=== PATIENT | male | born 1985 | race Caucasian/White ===

== ENCOUNTER 2020-05-04 13:41 | Emergency (ER) | payer OTHER ==
--- NOTE | 2020-05-04 15:21 | ULT ---
VENOUS DOPPLER ULTRASOUND OF THE LEFT LOWER EXTREMITY: HISTORY: Left lower extremity edema and pain. TECHNIQUE: Thompson scale, color flow, and spectral Doppler imaging of the deep venous system of the left lower extr emity was performed. FINDINGS: There is good flow, compression, and augmentation noted in the left common femoral, femoral, deep fem oral, popliteal, posterior tibial, and greater saphenous veins. IMPRESSION: No evidence of deep vein thrombosis in the left lower extremity. POS: AH
== END 2020-05-04 16:10 | disposition home or self-care (01) ==
LOC: ERS 13:41
DX: M79.662 Pain in left lower leg (principal); F17.210 Nicotine dependence, cigarettes, uncomplicated